=== PATIENT | female | born 1960 | race Two or more races ===

== ENCOUNTER 2024-09-15 12:00 | Emergency (ER) | payer BC, SELFPAY ==
[2024-09-15 12:07] VITALS: BP 155/90; PULSE 111; RESP 19; TEMP 36.6; O2SAT 98; BMI 28.1
--- NOTE | 2024-09-15 12:12 | XR_ITS ---
Examination: CT abdomen and pelvis without contrast. Coronal 3-D reconstructions. Sagittal 2-D reconstructions. Date and time of exam:September 15, 2024 1253 hours Comparison June 22, 2021 INDICATIONS: Upper abdominal pain nausea vomiting today CTDI: vol (mGy): 7.05 DLP: (mGycm): 394 Technique: Axial images of the abdomen have been obtained, 3 mm slice thickness Intravenous contrast material has not been administered. Low dose protocols were performed. One or more of the following dose reduction techniques were used; automated exposure control, adjustment of the mA and/or KV according to patient size, use of iterative reconstruction technique. Findings: 3 mm pulmonary nodule right middle lobe No visualized liver or splenic lesion Absent gallbladder No pancreatic or adrenal mass 2 mm calculus lower pole left kidney, no hydronephrosis or ureteral calculi Colonic sutures Normal appendix Colonic diverticulosis no diverticulitis No definite colitis pattern however this is a noncontrast study Anteverted uterus Contracted urinary bladder Moderate disc narrowing L2-L3 IMPRESSION: 2 mm nonobstructing lower pole left renal calculus No hydronephrosis or ureteral calculi Normal appendix Scattered colonic diverticulosis, no diverticulitis
--- NOTE | 2024-09-15 12:12 | PD.EDRME ---
Rapid Medical Screening Exam RME Arrival date/time: 09/15/24 12:00 63-year-old female presents to the emergency department day for complaint of generalized abdominal pain nausea vomiting Chief Complaint: Nausea/Vomiting/Diarrhea Vital signs: Vital Signs Temperature 97.8 F 09/15/24 12:07 Pulse Rate 111 H 09/15/24 12:07 Respiratory Rate 19 09/15/24 12:07 Blood Pressure 155/90 H 09/15/24 12:07 Pulse Oximetry (%) 98 09/15/24 12:07 Oxygen Delivery Method Room Air 09/15/24 12:07
[2024-09-15] MEDS: METOCLOPRAMIDE INJ 5 MG/ML VIAL 2 ML 10 MG IM (12:22)
[2024-09-15 13:03] LABS: Basophils % (Auto) 0 % (0-2.5); Eosinophils % (Auto) 0 % (0-10); Hematocrit 47.9 % (36.0-46.0); Hemoglobin 16.3 g/dL (12.0-16.0); Immature Granulocytes % (Auto) 1 % (0-0); Immature Granulocytes Auto 0.05 Thou/mm3 (0.00-0.00); Lymphocytes # (Auto) 0.8 Thou/mm3 (1.0-4.8); Lymphocytes % (Auto) 8 % (10-50); Mean Corpuscular Volume 85 fL (80-100); Monocytes # (Auto) 0.3 Thou/mm3 (0.0-0.8); Monocytes % (Auto) 3 % (0-12); Neutrophils # (Auto) 8.8 Thou/mm3 (1.8-7.7); Neutrophils % (Auto) 88 % (37-80); Nucleated Red Blood Cell % 0 /100 WBC (0); Platelet Count 300 Thou/mm3 (140-440); RDW Standard Deviation 40.3 fL (36.4-46.3); Red Blood Count 5.62 Miln/mm3 (4.00-5.20)
[2024-09-15 13:12] LABS: Alanine Aminotransferase 36 U/L (10-49); Albumin, Serum 4.9 gm/dL (3.4-4.8); Albumin/Globulin Ratio 1.9 (1.2-2.2); Alkaline Phosphatase 95 U/L (46-116); Anion Gap 12 (7-16); Aspartate Amino Transferase 26 U/L (0-34); BUN/Creatinine Ratio 23 Ratio (12-20); Bilirubin,Total 0.8 mg/dL (0.3-1.2); Blood Urea Nitrogen 21 mg/dL (9-23); Calcium 9.6 mg/dL (8.3-10.6); Calcium (Corrected) 9.6 mg/dL (8.5-10.1); Carbon Dioxide 26.1 mMol/L (20.0-31.0); Chloride 103 mMol/L (98-107); Creatinine (Component) 0.9 mg/dL (0.6-1.3); Estimated Creatinine Clearance 60.9 mL/min (>60); Globulin 2.6 gm/dL (2.3-3.5); Glucose 124 mg/dL (74-106); Lipase 28 U/L (12-53); Osmolality,Calculated 285 (275-295); Potassium 3.8 mMol/L (3.4-5.1); Sodium 141 mMol/L (136-145); Total Protein 7.5 gm/dL (5.7-8.2); eGFR > 60 See Note
[2024-09-15 14:26] LABS: Collection Type, Urine Clean Catch
[2024-09-15 14:41] LABS: Bacteria,Urine 2+; Bilirubin,Urine Negative (Negative); Blood,Urine Trace (Negative); Clarity,Urine Turbid (Clear/Hazy); Color,Urine Yellow (Lt Yel-Yel); Glucose, Urine Trace (Negative); Granular Casts,Urine < 1 /hpf (0-1); Hyaline Casts,Urine 1 /hpf (0-1); Ketones,Urine Negative (Negative); Leukocyte Esterase,Urine Positive (Negative); Nitrite,Urine Negative (Negative); PH,Urine 5.5 (5.0-7.0); Protein,Urine 1+ (Neg - Trace); RBC,Urine 3 /hpf (0-3); Specific Gravity,Urine 1.031 (1.001-1.035); Squamous Epithelial Cell,Urine 7 /hpf (0-5); Urobilinogen,Urine Negative mg/dL (0.0-1.0); WBC,Urine 98 /hpf (0-5)
[2024-09-15 14:42] LABS: Culture Indicated,Urine Yes
--- NOTE | 2024-09-15 15:47 | EDNOTE_ITS ---
Nausea/Vomit./Diarrhea-RME/HPI General Chief complaint: Nausea/Vomiting/Diarrhea Stated complaint: ABD PAIN, VOMITING X 18 HRS; SENT BY PCP Time Seen by Provider: 09/15/24 12:31 Arrival date/time: 09/15/24 12:00 Limitations: no limitations RME / HPI RME / HPI Narrative: 62-year-old female is here today with a 2-day history of nausea, vomiting, diarrhea. She notes no blood in her emesis or stool. She denies any fevers or chills. Has no flank pain or back pain. She has no urinary complaints. She denies any history of colitis. She has no recent use of antibiotics. Denies any recent traveling. Denies any sick contacts. She has no other acute complaints. Related Data Home Medications ?Medication ?Instructions ?Recorded ?Confirmed lactobacillus combo no.11 15 1 cap PO QDAY #0 caps 03/18 billion cell sprinkle capsule (Probiotic) lovastatin 20 mg tablet 10 mg PO HS #0 tabs 07/12/16 Previous Rx's ?Medication ?Instructions ?Recorded Hydrocodone/Acetaminophen (Lortab 1 tab PO Q4HR pain # 30 tabs 07/13/16 5-325 mg Tablet) metoclopramide HCl 10 mg tablet 10 mg PO Q6H PRN nause a and 06/23/21 (Reglan) vomiting #20 tabs ondansetron 4 mg disintegrating 4 mg PO QDAY PRN nause a and 09/15/24 tablet vomiting 5 days #10 tabs Allergies Allergy/AdvReac Type Severity Reaction Status Date / Time No Known Allergies Allergy Verified 09/15/24 12:02 Review of Systems Review of Systems Systems Reviewed: All systems reviewed, normal except as documented ED Exam General Limitations: Present no limitations General appearance: Present alert and in no apparent distress Head Head exam: Present atraumatic Eye Eye exam: Present normal appearance, PERRL and EOMI ENT ENT exam: Present normal exam, normal oropharynx and mucous membranes moist Neck Neck exam: Present normal inspection, full ROM and trachea midline Chest Chest inspection: Present normal inspection and symmetric chest wall rise Respiratory Respiratory exam: Present normal lung sounds bilaterally Cardiovascular Cardiovascular exam: Present regular rate, normal rhythm and normal heart sounds Abdominal Exam Abdominal exam: Present soft and normal bowel sounds Extremities Exam Extremities exam: Present normal inspection and full ROM Back Exam Back exam: Present normal inspection and full ROM Neurological Exam Neurological exam: Present alert, oriented X3 and CN II-XII intact Psychiatric Psychiatric exam: Present normal affect and normal mood Skin Skin exam: Present warm, dry, intact and normal color Course Quality Measures none Orders Category Date Time Status CT abdomen pelvis wo con Stat Exams 09/15/24 12:12 Completed CBC Stat Lab 09/15/24 12:24 Completed Comprehensive Metabolic Panel Stat Lab 09/15/24 12:24 Completed Lipase Stat Lab 09/15/24 12:24 Completed UA, C/S IF [Urinalysis, C/S if Indicated] Stat Lab 09/15/24 14:15 Completed Urine Culture Stat Lab 09/15/24 14:15 Received Metoclopramide Inj [Reglan Inj] Med 09/15/24 12:11 Discontinued 10 mg IM X1 ONE Vital Signs Vital signs: Vital Signs Temperature 97.8 F 09/15/24 12:07 Pulse Rate 111 H 09/15/24 12:07 Respiratory Rate 19 09/15/24 12:07 Blood Pressure 155/90 H 09/15/24 12:07 Pulse Oximetry (%) 98 09/15/24 12:07 Oxygen Delivery Method Room Air 09/15/24 12:07 Nausea/Vomiting/Diarrhea MDM Narrative MDM Narrative:: 63-year-old female who is here to the 2-day history of nausea, vomiting, diarrhea. Work appears essentially unremarkable. Shows no leukocytosis. Kidney function and liver function within normal limits. CT reveals no acute intra-abdominal involvement. Patient received therapies here and states her symptoms have since resolved. We discussed likely self-limiting viral etiology. Patient be discharged to home with medications for symptomatic care. Return precautions were discussed. She agrees return as needed for any worsening or emergent changes. Patient data External records reviewed:: None Clinical information provided by:: patient Social determinants that could affect healthcare access:: none Patient has the following chronic illnesses:: n/a How is presenting disease/condition affected by chronic disease/condition?: uneffected by Evaluation data The following diagnostics were reviewed and interpreted by me:: lab results and radiology exam(s) Lab and/or radiology exams considered but not ordered:: n/a Interpretation Summary: No leukocytosis, no acute hepatitis, no evidence of acute pancreatitis. No evidence of bowel obstruction. Medications / Prescriptions Medications / Prescriptions considered but not ordered:: n/a Medication administrations:: Medication Administration History Discontinued Medications Metoclopramide HCl (Metoclopramide Inj 5 Mg/Ml Vial 2 Ml) 10 mg IM X1 ONE; Protocol Stop: 09/15/24 12:12 Last Admin: 09/15/24 12:22 Dose: 10 mg Documented By: CLAY See above Consultations Consultation(s) initiated? (list below): No Diagnosis Nausea Differential Diagnosis: other Most likely diagnosis given after review of the tests above:: Acute viral gastroenteritis Admission Indicated Admission indicated?: not indicated Admission Request Was there a request for admission?: No Disposition Plan Disposition Plan: Discharge Discharge Attestation Discharge Attestation: The patient and all family members were given an opportunity to ask questions and understood the discharge instructions. Discharge instructions specifically effects, indications for sooner follow up or return to the emergency department, and the expected course of current diagnosis. Patient condition: Stable Discharge Plan Plan Patient Disposition: HOME (Self Care) Patient condition on transfer: Stable Prescriptions/Referrals Prescriptions/Med Rec: New ondansetron 4 mg tablet,disintegrating 4 mg PO QDAY PRN (Reason: nausea and vomiting) 5 Days Qty: 10 0RF No Action lovastatin 20 MG tablet 10 mg PO HS Qty: 0 lactobacillus combo no.11 [Probiotic] 1 EACH capsule, sprinkle 1 cap PO QDAY Qty: 0 Hydrocodone/Acetaminophen (Lortab 5-325 mg Tablet) 1 EACH tablet 1 tab PO Q4HR Qty: 30 0RF metoclopramide HCl [Reglan] 10 mg tablet 10 mg PO Q6H PRN (Reason: nausea and vomiting) Qty: 20 0RF Referrals: Lambert Jeffries MD [Primary Care Provider] - In 1 week Problem List Clinical Impression: Gastroenteritis Patient/Caregiver Discharge Instructions Education Materials: ED Gastroenteritis, Viral (Adult) Additional Instructions: Maintain oral hydration. Use provide medications as needed for symptomatic relief. Please follow-up with your clinic as needed. Return here for any worsening emergent changes. Print Language: [place] Island[place] Stand Alone Forms: Mari Award Info., Patient Portal Info Letter
== END 2024-09-15 16:11 | disposition home or self-care (01) ==
PROVIDERS: Nurse Practitioner Primary Care; Emergency Provider Family Medicine; PCP Internal Medicine
DX: K52.9 Noninfective gastroenteritis and colitis, unspecified (principal); K57.30 Diverticulosis of large intestine without perforation or abscess without bleeding; N20.0 Calculus of kidney
CPT/HCPCS: 36415; 74176; 80053; 81001; 83690; 85025; 87086; 96372; 99284; J2765